=== PATIENT | female | born 1990 | race Caucasian/White ===

== ENCOUNTER 2019-09-01 09:14 | Inpatient (IN) | payer MEDICAID ==
[~2019-09-01 09:14] MED LIST: Bupivacaine 0.25% 10 ML SDV ONE
[2019-09-01] MEDS ORDERED: Ondansetron 4 MG/2 ML SDV IVPUSH PRN (10:43)
[2019-09-01] MEDS ORDERED: Sodium Chloride 0.9% 10 ML Syringe FLUSH PRN (10:43)
[2019-09-01] MEDS ORDERED: Lidocaine 1% 50 ML MDV INJECT ONE (10:43)
[2019-09-01] MEDS ORDERED: Lactated Ringers 1,000 ML IV SCH (10:45)
[2019-09-01] MEDS ORDERED: Oxytocin/Lactated Ringers 10 UNIT/1,000 ML BAG IV SCH ×2 (10:45→11:00)
[2019-09-01] MEDS ORDERED: ceFAZolin 2 GM in Premix Bag 1 BAG IV ONE (11:00)
[2019-09-01] MEDS ORDERED: ePHEDrine 50 MG/ML SDV IVPUSH PRN (12:40)
[2019-09-01] MEDS ORDERED: diphenhydrAMINE 50 MG/ML SDV IVPUSH PRN (12:40)
[2019-09-01] MEDS ORDERED: fentaNYL 100 MCG/2 ML SDV EPIDUR PRN (12:40)
[2019-09-01] MEDS ORDERED: Bupivacaine/fentaNYL/NS 100 ML Bag EPIDUR PRN (12:40)
--- NOTE | 2019-09-01 13:02 | PCM.PREANE ---
Preanesthetic Assessment - Procedure Proposed Procedure: natacha - Anesthesia/Transfusion/Family Hx Anesthesia History: Prior Anesthesia Reaction Type of Anesthesia Reaction: Other (see below) (vilent behavior with wake up) Family History of Anesthesia Reaction: No Transfusion History: No Prior Transfusion(s) - Review of Systems General: No Symptoms Pulmonary: No Symptoms Cardiovascular: No Symptoms Gastrointestinal: No Symptoms Neurological: No Symptoms Other: Reports: None - Physical Assessment Height: 5 ft 6 in Weight: 94.256 kg ASA Class: 2 Mental Status: Alert & Oriented x3 Airway Class: Mallampati = 1 Dentition: Reports: Normal Dentition Thyro-Mental Finger Breadths: 3 Mouth Opening Finger Breadths: 3 ROM/Head Extension: Full Lungs: Clear to Auscultation, Normal Respiratory Effort Cardiovascular: Regular Rate, Regular Rhythm - Lab Values: Laboratory Last Values WBC 13.70 K/mm3 (3.98-10.04) H 09/01/19 11:10 RBC 3.80 M/mm3 (3.98-5.22) L 09/01/19 11:10 Hgb 11.0 gm/dl (11.2-15.7) L 09/01/19 11:10 Hct 34.2 % (34.1-44.9) 09/01/19 11:10 MCV 90.0 fl (79.4-94.8) 09/01/19 11:10 MCH 28.9 pg (25.6-32.2) 09/01/19 11:10 MCHC 32.2 g/dl (32.2-35.5) 09/01/19 11:10 RDW Std Deviation 47.1 fL (36.4-46.3) H 09/01/19 11:10 Plt Count 253 K/mm3 (182-369) 09/01/19 11:10 MPV 7.2 fl (9.4-12.3) L 09/01/19 11:10 Neut % (Auto) 79.1 % (34.0-71.1) H 09/01/19 11:10 Lymph % (Auto) 13.8 % (19.3-51.7) L 09/01/19 11:10 [place] % (Auto) 4.5 % (4.7-12.5) L 09/01/19 11:10 Eos % (Auto) 1.6 (0.7-5.8) 09/01/19 11:10 Baso % (Auto) 0.1 % (0.1-1.2) 09/01/19 11:10 Neut # (Auto) 10.83 K/mm3 (1.56-6.13) H 09/01/19 11:10 Lymph # (Auto) 1.89 K/mm3 (1.18-3.74) 09/01/19 11:10 [place] # (Auto) 0.61 K/mm3 (0.24-0.36) H 09/01/19 11:10 Eos # (Auto) 0.22 K/mm3 (0.04-0.36) 09/01/19 11:10 Baso # (Auto) 0.02 K/mm3 (0.01-0.08) 09/01/19 11:10 Manual Slide Review Normal smear 09/01/19 11:10 - Allergies Allergies/Adverse Reactions: Allergies Allergy/AdvReac Type Severity Reaction Status Date / Time amoxicillin Allergy Difficulty Verified 09/01/19 09:33 Breathing Penicillins Allergy Difficulty Verified 09/01/19 09:33 Breathing sulfamethoxazole Allergy Hives Verified 09/01/19 09:33 [From Bactrim] trimethoprim [From Bactrim] Allergy Hives Verified 09/01/19 09:33 - Blood Blood Available: No - Acknowledgements Anesthesia Type Planned: Epidural Pt an Appropriate Candidate for the Planned Anesthesia: Yes Alternatives and Risks of Anesthesia Discussed w Pt/Guardian: Yes Pt/Guardian Understands and Agrees with Anesthesia Plan: Yes PreAnesthesia Questionnaire Cardiovascular History: Reports: None Respiratory History: Reports: Asthma, Other (See Below) (sarcoidosis- lungs mostly- nodules in each lung) Gastrointestinal History: Reports: GERD : 3 Para: 2 Musculoskeletal History: Reports: RA Immunologic History: Reports: Other (See Below) (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-nerve pain muscle pain inflammation) Oncologic (Cancer) History: Reports: None - History Comment History Comment: albuteral and a yellow inhaler - SUBSTANCE USE Smoking Status *Q: Former Smoker (quit 2 years ago) Tobacco Use Within Last Twelve Months: No Second Hand Smoke Exposure: No Days Per Week of Alcohol Use: 0 Recreational Drug Use History: No - HOME MEDS Home Medications: Home Meds Albuterol Sulfate [Albuterol Sulfate Hfa] 8.5 gm IH Q4HR PRN 08/24/19 [History] - CURRENT (IN HOUSE) MEDS Current Meds: Current Medications Diphenhydramine HCl (Benadryl) 25 mg IVPUSH Q6H PRN PRN Reason: pruritis Ephedrine Sulfate (Ephedrine Sulfate) 5 mg IVPUSH ASDIRECTED PRN PRN Reason: Hypotension Fentanyl (Sublimaze) 100 mcg EPIDUR Q3H PRN PRN Reason: Pain Last Admin: 09/01/19 12:47 Dose: 100 mcg Fentanyl/Bupivacaine HCl (Fentanyl/Bupivacaine/Ns 2 Mcg-0.125% 100 Ml) 100 ml EPIDUR ASDIRECTED PRN PRN Reason: Pain Last Admin: 09/01/19 12:48 Dose: 100 ml Lactated Ringer's (Ringers, Lactated) 1,000 mls @ 100 mls/hr IV ASDIRECTED FIOR Last Admin: 09/01/19 11:37 Dose: 100 mls/hr Oxytocin/Lactated Ringer's (Pitocin In Lr 10 Units/1,000 Ml) 10 unit in 1,000 mls @ 500 mls/hr IV .CONTINUOUS FIOR Oxytocin/Lactated Ringer's (Pitocin In Lr 10 Units/1,000 Ml) 10 unit in 1,000 mls @ 12 mls/hr IV TITRATE FIOR; Protocol Last Admin: 09/01/19 11:37 Dose: 2 munits/min, 12 mls/hr Cefazolin Sodium/Dextrose 1 gm (/ Premix) 50 mls @ 100 mls/hr IV Q8H FIOR Ondansetron HCl (Zofran) 4 mg IVPUSH Q4H PRN PRN Reason: Nausea/Vomiting Last Admin: 09/01/19 12:19 Dose: 4 mg Sodium Chloride (Saline Flush) 10 ml FLUSH ASDIRECTED PRN PRN Reason: Keep Vein Open Discontinued Medications Cefazolin Sodium/Dextrose 2 gm (/ Premix) 50 mls @ 100 mls/hr IV ONETIME ONE Stop: 09/01/19 11:29 Last Admin: 09/01/19 11:37 Dose: 100 mls/hr Lidocaine HCl (Xylocaine 1%) 50 ml INJECT ONETIME ONE Stop: 09/01/19 10:44
--- NOTE | 2019-09-01 16:29 | PCM.LDHP ---
L&D History of Present Illness - General Date of Service: 09/01/19 Admit Problem/Dx: Patient Status Order with Admit Dx/Problem 09/01/19 09:34 Patient Status [ADT] Routine 09/01/19 10:44 Patient Status [ADT] Routine Admission Diagnosis/Problem Admission Diagnosis/Problem Source of Information: Patient History Limitations: Reports: No Limitations - History of Present Illness Introduction:: Patient with decreased movement x 2 days at 39w3d. Admitted for induction of labor. Pain Score: 0 - Related Data Allergies/Adverse Reactions: Allergies Allergy/AdvReac Type Severity Reaction Status Date / Time amoxicillin Allergy Difficulty Verified 09/01/19 09:33 Breathing Penicillins Allergy Difficulty Verified 09/01/19 09:33 Breathing sulfamethoxazole Allergy Hives Verified 09/01/19 09:33 [From Bactrim] trimethoprim [From Bactrim] Allergy Hives Verified 09/01/19 09:33 Home Medications: Home Meds Albuterol Sulfate [Albuterol Sulfate Hfa] 8.5 gm IH Q4HR PRN 08/24/19 [History] Past Medical History Cardiovascular History: Reports: None Respiratory History: Reports: Asthma, Other (See Below) (sarcoidosis- lungs mostly- nodules in each lung) Other Respiratory History: sarcoidosis Gastrointestinal History: Reports: GERD [place]ANDLE [place]ICKER History: Reports: , Spontaneous Musculoskeletal History: Reports: RA Other Musculoskeletal History: Left knee surgery Immunologic History: Reports: Other (See Below) (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-nerve pain muscle pain inflammation) Oncologic (Cancer) History: Reports: None - Past Surgical History HEENT Surgical History: Reports: Adenoidectomy, Tonsillectomy, Other (See Below) Other HEENT Surgeries/Procedures: wisdom teeth removal GI Surgical History: Reports: Hernia, Abdominal - History Comment History Comment: albuteral and a yellow inhaler Social & Family History - Family History Family Medical History: Noncontributory - Tobacco Use Smoking Status *Q: Former Smoker (quit 2 years ago) Used Tobacco, but Quit: Yes Month/Year Tobacco Last Used: 07/2017 Second Hand Smoke Exposure: No - Alcohol Use Days Per Week of Alcohol Use: 0 - Recreational Drug Use Recreational Drug Use: No Drug Use in Last 12 Months: No H&P Review of Systems - Review of Systems: Review Of Systems: See Below General: Reports: No Symptoms HEENT: Reports: No Symptoms Pulmonary: Reports: No Symptoms Cardiovascular: Reports: No Symptoms Gastrointestinal: Reports: No Symptoms Genitourinary: Reports: No Symptoms Musculoskeletal: Reports: No Symptoms Skin: Reports: No Symptoms Psychiatric: Reports: No Symptoms Neurological: Reports: No Symptoms Hematologic/Lymphatic: Reports: No Symptoms Immunologic: Reports: No Symptoms L&D Exam - Exam Exam: See Below - Vital Signs Vital Signs: Last Vital Signs Temp 36.7 C 09/01/19 09:34 Pulse 78 09/01/19 09:34 Resp 14 09/01/19 09:34 BP 138/73 09/01/19 09:34 Pulse Ox 98 09/01/19 09:34 Weight: 94.256 kg - OB Specific Movement: Active Heart Tones: Present Heart Rate (FHR) Variability: Moderate (6-25 bmp) Presentation: Vertex - Paiz Score Paiz Score Cervix Position: Anterior Paiz Score Consistency: Soft Paiz Score Effacement: >80% Paiz Score Dilation: 3-4 cm Paiz Score 's Station: -2 Paiz Score Total: 10 - Exam General: Alert, Oriented HEENT: PERRLA, Conjunctiva Clear, EACs Clear, EOMI, Hearing Intact, Mucosa Moist & [place], Nares Patent, Normal Nasal Septum, Posterior Pharynx Clear, TMs Clear Neck: Supple, Trachea Midline Lungs: Clear to Auscultation, Normal Respiratory Effort Cardiovascular: Regular Rate, Regular Rhythm GI/Abdominal Exam: Normal Bowel Sounds, Soft, Non-Tender, No Organomegaly Back Exam: Normal Inspection, Full Range of Motion Extremities: Normal Inspection, Normal Range of Motion, Non-Tender, No Pedal Edema, Normal Capillary Refill Skin: Warm, Dry, Intact Neurological: Cranial Nerves Intact, Reflexes Equal Bilateral Psychiatric: Alert, Normal Affect, Normal Mood - Patient Data Lab Results Last 24 hrs: Laboratory Results - last 24 hr 09/01/19 Range/Units 11:10 WBC 13.70 H (3.98-10.04) K/mm3 RBC 3.80 L (3.98-5.22) M/mm3 Hgb 11.0 L (11.2-15.7) gm/dl Hct 34.2 (34.1-44.9) % MCV 90.0 (79.4-94.8) fl MCH 28.9 (25.6-32.2) pg MCHC 32.2 (32.2-35.5) g/dl RDW Std Deviation 47.1 H (36.4-46.3) fL Plt Count 253 (182-369) K/mm3 MPV 7.2 L (9.4-12.3) fl Neut % (Auto) 79.1 H (34.0-71.1) % Lymph % (Auto) 13.8 L (19.3-51.7) % [place] % (Auto) 4.5 L (4.7-12.5) % Eos % (Auto) 1.6 (0.7-5.8) Baso % (Auto) 0.1 (0.1-1.2) % Neut # (Auto) 10.83 H (1.56-6.13) K/mm3 Lymph # (Auto) 1.89 (1.18-3.74) K/mm3 [place] # (Auto) 0.61 H (0.24-0.36) K/mm3 Eos # (Auto) 0.22 (0.04-0.36) K/mm3 Baso # (Auto) 0.02 (0.01-0.08) K/mm3 Manual Slide Review Normal smear Result Diagrams: 09/01/19 11:10 Problem List Initiated/Reviewed/Updated: Yes Orders Last 24hrs: Active Orders 24 hr Category Date Time Status Patient Status [ADT] Routine ADT 09/01/19 10:44 Active Activity as Tolerated [RC] PFP Care 09/01/19 10:43 Active Communication Order [RC] ASDIRECTED Care 09/01/19 10:43 Active Heart Tones [RC] ASDIRECTED Care 09/01/19 10:44 Active Non Stress Test [RC] PER UNIT ROUTINE Care 09/01/19 09:34 Active Notify Provider [RC] ASDIRECTED Care 09/01/19 12:40 Active Notify Provider [RC] PFP Care 09/01/19 10:43 Active Notify Provider [RC] PRN Care 09/01/19 10:43 Active Peripheral IV Care [RC] . DIRECTED Care 09/01/19 10:44 Active Vital Signs [RC] PER UNIT ROUTINE Care 09/01/19 09:34 Active Vital Signs [RC] PER UNIT ROUTINE Care 09/01/19 10:43 Active Regular Diet [DIET] Diet 09/01/19 Breakfast Active RAPID PLASMA REAGIN,RPR [CHEM] Routine Lab 09/01/19 11:10 Received Bupivacaine/fentaNYL/NS [fentaNYL/Bupivacaine/NS 2 MCG- Med 09/01/19 12:40 Active 0.125% 100 ML] 100 ml EPIDUR ASDIRECTED PRN Lactated Ringers [Ringers, Lactated] 1,000 ml Med 09/01/19 10:45 Active IV ASDIRECTED Ondansetron [Zofran] Med 09/01/19 10:43 Active 4 mg IVPUSH Q4H PRN Oxytocin/Lactated Ringers [Pitocin in LR 10 Units/1,000 Med 09/01/19 10:45 Active ML] 10 unit in 1,000 ml IV .CONTINUOUS Oxytocin/Lactated Ringers [Pitocin in LR 10 Units/1,000 Med 09/01/19 11:00 Active ML] 10 unit in 1,000 ml IV TITRATE Sodium Chloride 0.9% [Saline Flush] Med 09/01/19 10:43 Active 10 ml FLUSH ASDIRECTED PRN ceFAZolin [Ancef] 1 gm Med 09/01/19 19:00 Active Premix Bag 1 bag IV Q8H diphenhydrAMINE [Benadryl] Med 09/01/19 12:40 Active 25 mg IVPUSH Q6H PRN ePHEDrine [ePHEDrine sulfate] Med 09/01/19 12:40 Active 5 mg IVPUSH ASDIRECTED PRN fentaNYL [Sublimaze] Med 09/01/19 12:40 Active 100 mcg EPIDUR Q3H PRN Electronic Heart Tones Ext w TOCO [WOMSER] Oth 09/01/19 10:43 Ordered Routine Electronic Heart Tones Internal [WOMSER] Per Unit Oth 09/01/19 10:43 Ordered Routine Peripheral IV Insertion Adult [OM.PC] Routine Oth 09/01/19 10:43 Ordered Resuscitation Status Routine Resus Stat 09/01/19 09:33 Ordered Medication Orders Diphenhydramine HCl (Benadryl) 25 mg IVPUSH Q6H PRN PRN Reason: pruritis Ephedrine Sulfate (Ephedrine Sulfate) 5 mg IVPUSH ASDIRECTED PRN PRN Reason: Hypotension Fentanyl (Sublimaze) 100 mcg EPIDUR Q3H PRN PRN Reason: Pain Last Admin: 09/01/19 12:47 Dose: 100 mcg Fentanyl/Bupivacaine HCl (Fentanyl/Bupivacaine/Ns 2 Mcg-0.125% 100 Ml) 100 ml EPIDUR ASDIRECTED PRN PRN Reason: Pain Last Admin: 09/01/19 12:48 Dose: 100 ml Lactated Ringer's (Ringers, Lactated) 1,000 mls @ 100 mls/hr IV ASDIRECTED FIOR Last Admin: 09/01/19 11:37 Dose: 100 mls/hr Oxytocin/Lactated Ringer's (Pitocin In Lr 10 Units/1,000 Ml) 10 unit in 1,000 mls @ 500 mls/hr IV .CONTINUOUS FIOR Oxytocin/Lactated Ringer's (Pitocin In Lr 10 Units/1,000 Ml) 10 unit in 1,000 mls @ 12 mls/hr IV TITRATE FIOR; Protocol Last Titration: 09/01/19 13:50 Dose: 6 munits/min, 36 mls/hr Titration: 09/01/19 13:15 Dose: 4 munits/min, 24 mls/hr Admin: 09/01/19 11:37 Dose: 2 munits/min, 12 mls/hr Cefazolin Sodium/Dextrose 1 gm (/ Premix) 50 mls @ 100 mls/hr IV Q8H FIOR Ondansetron HCl (Zofran) 4 mg IVPUSH Q4H PRN PRN Reason: Nausea/Vomiting Last Admin: 09/01/19 12:19 Dose: 4 mg Sodium Chloride (Saline Flush) 10 ml FLUSH ASDIRECTED PRN PRN Reason: Keep Vein Open Assessment/Plan Comment:: Term induction. AROM meconium. Anticipate
--- NOTE | 2019-09-01 16:32 | PCM.SN ---
- Free Text/Narrative Note: Stage I - patient presented with decreased movement. Induction of labor. AROM meconium. Pitocin augmentation. Epidural anesthesia. Progressed rapidly to complete. Stage II - of viable male, weight 3457, APGARS 8/9, at 1621. Head delivered over intact perineum. Positive cry. Body and shoulders atraumatically. Stage III - of intact placenta. No laceration. EBL 200.
[2019-09-01] MEDS ORDERED: Benzocaine/Menthol 20%-0.5% Spray 56 GM Canister TOP PRN (17:04)
[2019-09-01] MEDS ORDERED: Witch Hazel Medicated Pads 40/Jar TOP PRN (17:04)
[2019-09-01] MEDS ORDERED: Docusate Sodium 100 MG Cap PO PRN (17:04)
[2019-09-01] MEDS ORDERED: ceFAZolin 1 GM in Premix Bag 1 BAG IV SCH (19:00)
[2019-09-01] MEDS: Ibuprofen 600 MG Tab PO PRN (20:32)
[2019-09-02] MEDS: Acetaminophen 325 MG Tab PO PRN ×3 (00:35→13:10)
[2019-09-02] MEDS: Ibuprofen 600 MG Tab PO PRN ×2 (02:23→09:07)
--- NOTE | 2019-09-02 11:56 | PCM48HPAN ---
Post Anesthesia Note - EVALUATION WITHIN 48HRS OF ANESTHETIC Vital Signs in Normal Range: Yes Patient Participated in Evaluation: Yes Respiratory Function Stable: Yes Airway Patent: Yes Cardiovascular Function Stable: Yes Hydration Status Stable: Yes Pain Control Satisfactory: Yes Nausea and Vomiting Control Satisfactory: Yes Mental Status Recovered: Yes Vital Signs: Last Vital Signs Temp 36.4 C 09/02/19 05:09 Pulse 79 09/02/19 09:09 Resp 15 09/02/19 09:09 BP 131/62 09/02/19 09:09 Pulse Ox 95 09/02/19 09:09
--- NOTE | 2019-09-10 10:19 | PCM.DCSUM1 ---
Discharge Summary - Hospital Course Free Text/Narrative:: Decreased movement beyond 40 weeks. Admitted for IOL. Rapid labor and uncomplicated Diagnosis: Stroke: No - Discharge Data Discharge Date: 09/02/19 Discharge Disposition: Home, Self-Care 01 Condition: Good - Referral to Home Health Primary Care Physician: Shamika Emery MD - Patient Summary/Data Hospital Course: Uncomplicated course - Patient Instructions Diet: Regular Diet as Tolerated Activity: As Tolerated Driving: May Drive Today Showering/Bathing: May Shower Notify Provider of: Fever, Increased Pain, Swelling and Redness, Drainage, Nausea and/or Vomiting - Discharge Plan Home Medications: Home Meds Albuterol Sulfate [Albuterol Sulfate Hfa] 8.5 gm IH Q4HR PRN 08/24/19 [History] Patient Handouts: Care After Vaginal Delivery Referrals: Shamika Emery MD [Primary Care Provider] - - Discharge Summary/Plan Comment DC Time >30 min.: No - General Info Date of Service: 09/02/19 Functional Status: Reports: Pain Controlled - Review of Systems General: Reports: No Symptoms HEENT: Reports: No Symptoms Pulmonary: Reports: No Symptoms Cardiovascular: Reports: No Symptoms Gastrointestinal: Reports: No Symptoms Genitourinary: Reports: No Symptoms Musculoskeletal: Reports: No Symptoms Skin: Reports: No Symptoms Neurological: Reports: No Symptoms Psychiatric: Reports: No Symptoms - Patient Data Vitals - Most Recent: Last Vital Signs Temp 36.4 C 09/02/19 05:09 Pulse 81 09/02/19 14:55 Resp 15 09/02/19 14:55 BP 117/69 09/02/19 14:55 Pulse Ox 97 09/02/19 14:55 Weight - Most Recent: 94.256 kg Med Orders - Current: Current Medications Discontinued Medications Acetaminophen (Tylenol) 650 mg PO Q4H PRN PRN Reason: Pain Last Admin: 09/02/19 13:10 Dose: 650 mg Benzocaine/Menthol (Dermoplast Pain Relief [place]) 0 gm TOP ASDIRECTED PRN PRN Reason: Perineal Comfort Measure Last Admin: 09/01/19 18:22 Dose: 1 can Bupivacaine HCl (Sensorcaine-Mpf 0.25%) 10 ml .ROUTE .STK-MED ONE Stop: 09/01/19 00:01 Diphenhydramine HCl (Benadryl) 25 mg IVPUSH Q6H PRN PRN Reason: pruritis Docusate Sodium (Colace) 100 mg PO BID PRN PRN Reason: Constipation Ephedrine Sulfate (Ephedrine Sulfate) 5 mg IVPUSH ASDIRECTED PRN PRN Reason: Hypotension Fentanyl (Sublimaze) 100 mcg EPIDUR Q3H PRN PRN Reason: Pain Last Admin: 09/01/19 12:47 Dose: 100 mcg Fentanyl/Bupivacaine HCl (Fentanyl/Bupivacaine/Ns 2 Mcg-0.125% 100 Ml) 100 ml EPIDUR ASDIRECTED PRN PRN Reason: Pain Last Admin: 09/01/19 12:48 Dose: 100 ml Lactated Ringer's (Ringers, Lactated) 1,000 mls @ 100 mls/hr IV ASDIRECTED FIOR Last Admin: 09/01/19 11:37 Dose: 100 mls/hr Oxytocin/Lactated Ringer's (Pitocin In Lr 10 Units/1,000 Ml) 10 unit in 1,000 mls @ 500 mls/hr IV .CONTINUOUS FIOR Oxytocin/Lactated Ringer's (Pitocin In Lr 10 Units/1,000 Ml) 10 unit in 1,000 mls @ 12 mls/hr IV TITRATE FIOR; Protocol Last Titration: 09/01/19 16:25 Dose: 999 mls/hr Cefazolin Sodium/Dextrose 2 gm (/ Premix) 50 mls @ 100 mls/hr IV ONETIME ONE Stop: 09/01/19 11:29 Last Admin: 09/01/19 11:37 Dose: 100 mls/hr Cefazolin Sodium/Dextrose 1 gm (/ Premix) 50 mls @ 100 mls/hr IV Q8H IFOR Ibuprofen (Motrin) 600 mg PO Q6H PRN PRN Reason: Mild pain or fever Last Admin: 09/02/19 09:07 Dose: 600 mg Lidocaine HCl (Xylocaine 1%) 50 ml INJECT ONETIME ONE Stop: 09/01/19 10:44 Last Admin: 09/01/19 23:24 Dose: Not Given Ondansetron HCl (Zofran) 4 mg IVPUSH Q4H PRN PRN Reason: Nausea/Vomiting Last Admin: 09/01/19 12:19 Dose: 4 mg Sodium Chloride (Saline Flush) 10 ml FLUSH ASDIRECTED PRN PRN Reason: Keep Vein Open [place] (Tucks) 1 pad TOP ASDIRECTED PRN PRN Reason: Pain Last Admin: 09/01/19 18:22 Dose: 1 tub - Exam General: Reports: Alert, Oriented HEENT: Reports: Pupils Equal, Pupils Reactive, EOMI, Mucous Membr. Moist/[place] Neck: Reports: Supple Lungs: Reports: Clear to Auscultation, Normal Respiratory Effort Cardiovascular: Reports: Regular Rate, Regular Rhythm GI/Abdominal Exam: Normal Bowel Sounds, Soft, Non-Tender, No Organomegaly, No Distention, No Abnormal Bruit, No Mass, Pelvis Stable Rectal (Female) Exam: Normal Exam, Normal Rectal Tone Back Exam: Reports: Normal Inspection, Full Range of Motion Extremities: Normal Inspection, Normal Range of Motion, Non-Tender, No Pedal Edema, Normal Capillary Refill Skin: Reports: Warm, Dry, Intact Wound/Incisions: Reports: Healing Well Neurological: Reports: No New Focal Deficit Psy/Mental Status: Reports: Alert, Normal Affect, Normal Mood
== END 2019-09-02 17:15 | disposition home or self-care (01) | DRG 807 ==
LOC: JD.OB 09:14 → UNDOADMOB 09:14 → JD.OB 10:44 → OBSVTOIN 16:20 → JD.OB 16:21
PROVIDERS: ADMIT Obstetrics & Gynecology; ATTEND Obstetrics & Gynecology
PROC: 10E0XZZ Delivery of Products of Conception, External Approach (ICD-10-PCS; principal; 2019-09-01)
PROC: 10907ZC Drainage of Amniotic Fluid, Therapeutic from Products of Conception, Via Natural or Artificial Opening (ICD-10-PCS; 2019-09-01)
PROC: 3E0R3BZ Introduction of Anesthetic Agent into Spinal Canal, Percutaneous Approach (ICD-10-PCS; 2019-09-01)
DX: O36.8130 Decreased fetal movements, third trimester, not applicable or unspecified (principal); J45.909 Unspecified asthma, uncomplicated; O77.0 Labor and delivery complicated by meconium in amniotic fluid; O99.52 Diseases of the respiratory system complicating childbirth; Z90.89 Acquired absence of other organs; Z87.891 Personal history of nicotine dependence; Z37.0 Single live birth; Z3A.39 39 weeks gestation of pregnancy; Z88.0 Allergy status to penicillin; Z88.8 Allergy status to other drugs, medicaments and biological substances; Z79.51 Long term (current) use of inhaled steroids
CPT/HCPCS: 01967; 36415; 51702; 59025; 59409; 85025; 86592; A9270-GY; J0690; J2405; J2590; J3010; J3490; J7120

== ENCOUNTER 2021-06-16 19:46 | Emergency (ER) | payer MEDICAID ==
[2021-06-16] MEDS ORDERED: Orphenadrine 100 MG Tab.ER PO STA (20:50)
[2021-06-16] MEDS ORDERED: Ketorolac 60 MG/2 ML SDV IM ONE (20:50)
--- NOTE | 2021-06-16 21:41 | EDM.PDOC ---
ED HPI GENERAL MEDICAL PROBLEM - General Chief Complaint: Upper Extremity Injury/Pain Stated Complaint: R SIDE SHOULDER AND NECK PAIN Time Seen by Provider: 06/16/21 20:46 Source of Information: Reports: Patient History Limitations: Reports: No Limitations - History of Present Illness INITIAL COMMENTS - FREE TEXT/NARRATIVE: 30-year-old female presents the emergency department today with complaints of pain to the right side of her neck radiating into her right shoulder as well as her right chest. Patient states she woke this morning and must have slept wrong because she was unable to turn her head from side to side due to muscle tension noted in the right side of her neck. Patient denies any previous injury to her neck. States she has tried to take Tylenol and use ice as well as heat and it has not seemed to help. States she was going to try and get into a chiropractor today however she could not find one that was open. Right Shoulder Pain Score (Numeric/FACES): 8 Neck Pain Score (Numeric/FACES): 8 - Related Data Allergies Allergy/AdvReac Type Severity Reaction Status Date / Time amoxicillin Allergy Difficulty Verified 09/01/19 09:33 Breathing Penicillins Allergy Difficulty Verified 09/01/19 09:33 Breathing sulfamethoxazole Allergy Hives Verified 09/01/19 09:33 [From Bactrim] trimethoprim [From Bactrim] Allergy Hives Verified 09/01/19 09:33 Home Meds: Home Meds Albuterol Sulfate [Albuterol Sulfate Hfa] 8.5 gm IH Q4HR PRN 08/24/19 [History] Cyclobenzaprine [Flexeril] 10 mg PO ASDIRECTED 06/16/21 [History] DULoxetine [Cymbalta] 60 mg PO DAILY 06/16/21 [History] Gabapentin [Gralise] 300 mg PO TID 06/16/21 [History] Hydroxychloroquine [Plaquenil] 1 tab PO BID 06/16/21 [History] Omeprazole 40 mg PO DAILY 06/16/21 [History] Past Medical History Cardiovascular History: Reports: None Respiratory History: Reports: Asthma, Other (See Below) Other Respiratory History: sarcoidosis Gastrointestinal History: Reports: GERD MANAGER PRIMARY CARE History: Reports: , Spontaneous Musculoskeletal History: Reports: RA Other Musculoskeletal History: Left knee surgery Immunologic History: Reports: Other (See Below) Oncologic (Cancer) History: Reports: None - Past Surgical History HEENT Surgical History: Reports: Adenoidectomy, Tonsillectomy, Other (See Below) Other HEENT Surgeries/Procedures: wisdom teeth removal GI Surgical History: Reports: Hernia, Abdominal - History Comment History Comment: albuteral and a yellow inhaler Social & Family History - Family History Family Medical History: No Pertinent Family History - Tobacco Use Tobacco Use Status *Q: Never Tobacco User - Caffeine Use Caffeine Use: Reports: Coffee, Energy Drinks, Soda - Recreational Drug Use Recreational Drug Use: No Review of Systems - Review of Systems Review Of Systems: Comprehensive ROS is negative, except as noted in HPI. ED EXAM, GENERAL - Physical Exam Exam: See Below Exam Limited By: No Limitations General Appearance: Alert, WD/WN, Mild Distress Ears: Normal External Exam, Hearing Grossly Normal Nose: Normal Inspection Throat/Mouth: Normal Inspection, Normal Lips, Normal Voice, No Airway Compromise Head: Atraumatic, Normocephalic Neck: Normal Inspection, Supple, Tender Lateral (Tenderness noted to trapezius and sternocleidomastoid on the right side. Patient is unable to turn her head fully from side to side due to muscle tension and tenderness.). No: Tender Midline Respiratory/Chest: No Respiratory Distress, Lungs Clear, Normal Breath Sounds, No Accessory Muscle Use, Chest Non-Tender Cardiovascular: Normal Peripheral Pulses, Regular Rate, Rhythm, No Edema, No Murmur GI/Abdominal: No Distention (Female) Exam: Deferred Rectal (Female) Exam: Deferred Back Exam: Normal Inspection Extremities: Normal Inspection Neurological: Alert, Oriented, Normal Cognition Psychiatric: Normal Affect, Normal Mood Skin Exam: Warm, Dry, Intact, Normal Color, No Rash Lymphatic: No Adenopathy Course - Vital Signs Text/Narrative:: Stated above patient presents with pain to the right side of her neck. Upon palpation trapezius muscle is tender to very minimal palpation. She also has pain noted into the sternocleidomastoid area. Again patient states she woke this morning with the pain and tenderness and suspect she slept wrong last night. She is unable to turn her head from side to side due to the pain and tension noted in her muscles. Patient will be medicated with Norflex one-time as well as Toradol 60 mg IM. Last Recorded V/S: Last Vital Signs Temp 97.8 F 06/16/21 20:06 Pulse 74 06/16/21 20:06 Resp 20 06/16/21 20:06 BP 119/66 06/16/21 20:06 Pulse Ox 98 06/16/21 20:06 - Orders/Labs/Meds Meds: Medications Discontinued Medications Generic Name Dose Route Start Last Admin Trade Name Boni PRN Reason Stop Dose Admin Ketorolac Tromethamine 60 mg 06/16/21 20:50 06/16/21 20:57 Ketorolac 60 Mg/2 Ml Sdv IM 06/16/21 20:51 60 mg ONETIME ONE Administration Orphenadrine Citrate 100 mg 06/16/21 20:50 06/16/21 20:58 Orphenadrine 100 Mg Tab.Er PO 06/16/21 20:51 100 mg NOW STA Administration - Re-Assessments/Exams Free Text/Narrative Re-Assessment/Exam: 06/16/21 21:44 Nursing staff notifies me that the patient is feeling much better and is requesting to go home. She will be discharged home. Departure - Departure Time of Disposition: 21:39 Disposition: Home, Self-Care 01 Condition: Good Clinical Impression: Torticollis, acute - Discharge Information Instructions: Acute Torticollis, Adult Referrals: Analy Mckinley ANCIENT ART CURATOR [Primary Care Provider] - Forms: ED Department Discharge Additional Instructions: You were seen in the emergency department this evening with muscle tension noted on the right side of your neck radiating into your chest and right shoulder. You were given a muscle relaxer as well as a strong anti-inflammatory medication and this did seem to help. Recommend go home and get some rest. Drink plenty of fluids. May alternate taking Tylenol 650 mg with ibuprofen 600 mg every 4 hours for the next 48 hours. Recommend using ice 30 minutes at a time every 3 hours while awake. Would avoid using heat for the next 48 hours. Should your condition worsen or change, do not hesitate returning to the emergency department. Sepsis Event Note (ED) - Focused Exam Vital Signs: Vital Signs Temp Pulse Resp BP Pulse Ox 06/16/21 20:06 97.8 F 74 20 119/66 98
== END 2021-06-16 21:48 | disposition home or self-care (01) ==
LOC: JD.ED 19:46
DX: M43.6 Torticollis (principal); K21.9 Gastro-esophageal reflux disease without esophagitis; Z79.899 Other long term (current) drug therapy; Z88.0 Allergy status to penicillin; Z88.1 Allergy status to other antibiotic agents
CPT/HCPCS: 96372; 99283; A9270; J1885

== ENCOUNTER 2024-02-29 15:15 | Emergency (ER) | payer OTHER ==
[2024-02-29] MEDS ORDERED: Sodium Chloride 0.9% 10 ML Syringe FLUSH PRN (15:52)
[2024-02-29 16:37] LABS: BASOPHILS ABSOLUTE AUTO 0.1 K/mm3 (0.0-0.2); BASOPHILS PERCENT AUTO 0.5 % (0.0-1.0); EOSINOPHILS ABSOLUTE AUTO 0.5 K/mm3 (0.0-0.4); EOSINOPHILS PERCENT AUTO 4.9 % (0.0-6.0); HEMATOCRIT 36.4 % (37.0-47.0); HEMOGLOBIN 12.1 gm/dl (12.0-16.0); IMMATURE GRAN ABSOLUTE AUTO 0.03 K/mm3 (0.00-0.05); IMMATURE GRAN PERCENT AUTO 0.3 % (0.0-0.4); LYMPHOCYTES ABSOLUTE AUTO 2.4 K/mm3 (1.0-4.8); LYMPHOCYTES PERCENT AUTO 24.1 % (24.0-44.0); MEAN CORPUSCULAR HEMOGLOBIN 30.9 pg (28.0-32.0); MEAN CORPUSCULAR HGB CONC 33.2 g/dl (32.0-36.0); MEAN CORPUSCULAR VOLUME 93.1 fl (83.0-99.0); MEAN PLATELET VOLUME 8.3 fl (9.4-12.3); MONOCYTES ABSOLUTE AUTO 0.7 K/mm3 (0.0-0.8); MONOCYTES PERCENT AUTO 6.9 % (0.0-8.0); NEUTROPHILS ABSOLUTE AUTO 6.4 K/mm3 (1.8-7.7); NEUTROPHILS PERCENT AUTO 63.3 % (41.0-71.0); PLATELET COUNT,PLT 240 K/mm3 (150-400); RED BLOOD CELL COUNT 3.91 M/mm3 (4.10-5.30); WHITE BLOOD CELL COUNT,WBC 10.12 K/mm3 (3.9-11.3)
[2024-02-29 16:57] LABS: INR 1.07; PROTHROMBIN TIME 11.3 SECONDS (9.7-12.0)
[2024-02-29 17:00] LABS: A/G RATIO 1.3 (1-2); ALBUMIN 4.2 g/dl (3.4-5.0); ANION GAP 15.3 (5-15); BILIRUBIN TOTAL 0.4 mg/dL (0.2-1.0); BUN/CREATININE RATIO 12.9 (14-18); C-REACTIVE PROTEIN 0.29 mg/dL (<0.30); CALCIUM 9.2 mg/dL (8.5-10.1); CREATININE 0.7 mg/dL (0.55-1.02); EST CRCL DRUG DOSING (CG) 105.01 mL/min; POTASSIUM,K 3.3 mEq/L (3.5-5.1); PROTEIN TOTAL,TP 7.4 g/dl (6.4-8.2)
== END 2024-02-29 17:54 | disposition home or self-care (01) ==
LOC: JD.ED 15:15
DX: S80.12XA Contusion of left lower leg, initial encounter (principal); D89.89 Other specified disorders involving the immune mechanism, not elsewhere classified; J45.909 Unspecified asthma, uncomplicated; Z88.0 Allergy status to penicillin; Z88.2 Allergy status to sulfonamides; Z88.8 Allergy status to other drugs, medicaments and biological substances; Z79.899 Other long term (current) drug therapy; X50.9XXA Other and unspecified overexertion or strenuous movements or postures, initial encounter
CPT/HCPCS: 36415; 80053; 85025; 85610; 86140; 93971-26-LT; 93971-LT; 99283; 99284

== ENCOUNTER 2024-04-23 06:42 | Day surgery (SDC) | payer OTHER ==
[2024-04-23] MEDS: HYDROmorphone 1 MG/ML Syringe IVPUSH ONE ×2 (08:02→09:40)
[2024-04-23] MEDS: Sodium Chloride 0.9% 1,000 ML IV SCH (08:02)
[2024-04-23 08:23] LABS: BASOPHILS ABSOLUTE AUTO 0.1 K/mm3 (0.0-0.2); BASOPHILS PERCENT AUTO 0.8 % (0.0-1.0); EOSINOPHILS PERCENT AUTO 12.4 % (0.0-6.0); HEMATOCRIT 42.2 % (37.0-47.0); HEMOGLOBIN 13.5 gm/dl (12.0-16.0); IMMATURE GRAN ABSOLUTE AUTO 0.03 K/mm3 (0.00-0.05); IMMATURE GRAN PERCENT AUTO 0.4 % (0.0-0.4); LYMPHOCYTES ABSOLUTE AUTO 1.9 K/mm3 (1.0-4.8); LYMPHOCYTES PERCENT AUTO 22.8 % (24.0-44.0); MEAN CORPUSCULAR HEMOGLOBIN 30.8 pg (28.0-32.0); MEAN PLATELET VOLUME 8.4 fl (9.4-12.3); MONOCYTES ABSOLUTE AUTO 0.5 K/mm3 (0.0-0.8); MONOCYTES PERCENT AUTO 6.6 % (0.0-8.0); NEUTROPHILS ABSOLUTE AUTO 4.7 K/mm3 (1.8-7.7); PLATELET COUNT,PLT 250 K/mm3 (150-400); RED BLOOD CELL COUNT 4.39 M/mm3 (4.10-5.30); WHITE BLOOD CELL COUNT,WBC 8.24 K/mm3 (3.9-11.3)
[2024-04-23 08:27] LABS: MEAN CORPUSCULAR VOLUME 96.1 fl (83.0-99.0)
[2024-04-23] MEDS: Propofol 200 MG/20 ML SDV IVPUSH ONE (08:37)
[2024-04-23 08:42] LABS: ANION GAP 11.4 (5-15); BUN/CREATININE RATIO 16.7 (14-18); CALCIUM 8.7 mg/dL (8.5-10.1); CREATININE 0.6 mg/dL (0.55-1.02); EST CRCL DRUG DOSING (CG) 122.51 mL/min; POTASSIUM,K 4.4 mEq/L (3.5-5.1)
[2024-04-23] MEDS: Ondansetron 4 MG/2 ML SDV IVPUSH ONE (09:42)
[2024-04-23] MEDS ORDERED: Ondansetron 4 MG/2 ML SDV ONE (11:06)
[2024-04-23] MEDS ORDERED: Lidocaine 1% 5 ML VIAL ONE (11:06)
[2024-04-23] MEDS ORDERED: fentaNYL 250 MCG/5 ML SDV ONE (11:06)
[2024-04-23] MEDS ORDERED: Rocuronium 50 MG/5 ML Vial ONE (11:06)
[2024-04-23] MEDS ORDERED: Midazolam 1 MG/ML 2 ML SDV ONE (11:06)
[2024-04-23] MEDS ORDERED: Propofol 200 MG/20 ML SDV ONE (11:06)
[2024-04-23] MEDS ORDERED: Lactated Ringers 1,000 ML IV ONE (11:33)
[2024-04-23] MEDS ORDERED: Dexamethasone 4 MG/ML 5 ML MDV ONE (11:54)
[2024-04-23] MEDS ORDERED: ePHEDrine 50 MG/ML SDV ONE (11:54)
[2024-04-23] MEDS ORDERED: Sugammadex Sodium 200 MG/2 ML VIAL IV ONE (12:45)
[2024-04-23] MEDS: Clindamycin Phosphate in D5W 900 MG in Premix Bag 1 BAG IV ONE (12:48)
[2024-04-23] MEDS: EPINEPHrine 1 MG/ML SDV ONE (13:09)
[2024-04-23] MEDS: Bupivacaine 0.5% 30 ML SDV ONE (13:09)
[2024-04-23] MEDS ORDERED: Ondansetron 4 MG/2 ML SDV IVPUSH PRN (14:32)
[2024-04-23] MEDS: HYDROmorphone 0.5 MG/0.5 ML Syringe IVPUSH PRN (14:34)
[2024-04-23] MEDS: fentaNYL 100 MCG/2 ML SDV IVPUSH PRN (14:50)
[2024-04-23] MEDS: diphenhydrAMINE 50 MG/ML SDV IVPUSH ONE (15:18)
[2024-04-23] MEDS: Ketorolac 30 MG/ML SDV IVPUSH ONE (16:03)
[2024-04-23] MEDS: oxyCODONE 5 MG Tab PO PRN (16:05)
== END 2024-04-23 16:44 | disposition home or self-care (01) ==
LOC: JD.ED 06:42 → JD.SDS 11:32
PROVIDERS: ATTEND Surgery
DX: K41.30 Unilateral femoral hernia, with obstruction, without gangrene, not specified as recurrent (principal); Z88.0 Allergy status to penicillin; Z88.2 Allergy status to sulfonamides; K21.9 Gastro-esophageal reflux disease without esophagitis; F41.9 Anxiety disorder, unspecified; J45.909 Unspecified asthma, uncomplicated
CPT/HCPCS: 00840; 36415; 80048; 84703; 85025; 96374; 96375; 96376; 99152; 99284-25; 99285; A9270-GY; J0171; J0665; J0736; J1100; J1171; J1200; J1885; J2250; J2405; J2704; J3010; J3490; J7030; J7120

== ENCOUNTER 2024-04-30 17:18 | Emergency (ER) | payer OTHER ==
[2024-04-30 19:03] LABS: BASOPHILS ABSOLUTE AUTO 0.1 K/mm3 (0.0-0.2); BASOPHILS PERCENT AUTO 0.6 % (0.0-1.0); EOSINOPHILS ABSOLUTE AUTO 0.7 K/mm3 (0.0-0.4); EOSINOPHILS PERCENT AUTO 6.7 % (0.0-6.0); HEMATOCRIT 38.4 % (37.0-47.0); HEMOGLOBIN 12.7 gm/dl (12.0-16.0); IMMATURE GRAN ABSOLUTE AUTO 0.04 K/mm3 (0.00-0.05); IMMATURE GRAN PERCENT AUTO 0.4 % (0.0-0.4); LYMPHOCYTES ABSOLUTE AUTO 2.5 K/mm3 (1.0-4.8); LYMPHOCYTES PERCENT AUTO 24.1 % (24.0-44.0); MEAN CORPUSCULAR HEMOGLOBIN 31.1 pg (28.0-32.0); MEAN CORPUSCULAR HGB CONC 33.1 g/dl (32.0-36.0); MEAN CORPUSCULAR VOLUME 93.9 fl (83.0-99.0); MEAN PLATELET VOLUME 7.8 fl (9.4-12.3); MONOCYTES ABSOLUTE AUTO 0.5 K/mm3 (0.0-0.8); MONOCYTES PERCENT AUTO 5.1 % (0.0-8.0); NEUTROPHILS ABSOLUTE AUTO 6.4 K/mm3 (1.8-7.7); NEUTROPHILS PERCENT AUTO 63.1 % (41.0-71.0); PLATELET COUNT,PLT 232 K/mm3 (150-400); RED BLOOD CELL COUNT 4.09 M/mm3 (4.10-5.30); WHITE BLOOD CELL COUNT,WBC 10.17 K/mm3 (3.9-11.3)
[2024-04-30 19:25] LABS: A/G RATIO 1.2 (1-2); ALBUMIN 3.9 g/dl (3.4-5.0); ANION GAP 13.4 (5-15); BILIRUBIN TOTAL 0.5 mg/dL (0.2-1.0); BUN/CREATININE RATIO 13.3 (14-18); CALCIUM 8.6 mg/dL (8.5-10.1); CREATININE 0.6 mg/dL (0.55-1.02); EST CRCL DRUG DOSING (CG) 122.51 mL/min; POTASSIUM,K 3.4 mEq/L (3.5-5.1); PROTEIN TOTAL,TP 7.3 g/dl (6.4-8.2)
[2024-04-30 20:02] LABS: APPEARANCE,URINE CLEAR (Clear); BILIRUBIN,URINE NEGATIVE (Negative); COLOR,URINE YELLOW (Yellow); GLUCOSE,URINE NEGATIVE (Negative); KETONES,URINE 1+ (Negative); LEUKOCYTE ESTERASE,URINE NEGATIVE (Negative); NITRITE,URINE NEGATIVE (Negative); OCCULT BLOOD,URINE NEGATIVE (Negative); PROTEIN,URINE NEGATIVE (Negative)
[2024-04-30] MEDS ORDERED: Naloxone 0.4 MG/ML SDV IVPUSH PRN (20:12)
[2024-04-30] MEDS: Iopamidol 612 MG/ML 100 ML Bottle IVPUSH ONE (20:22)
[2024-04-30] MEDS: Sodium Chloride 0.9% 10 ML Syringe FLUSH ONE (20:22)
[2024-04-30] MEDS: fentaNYL 100 MCG/2 ML SDV IVPUSH ONE (20:22)
== END 2024-04-30 21:11 | disposition home or self-care (01) ==
LOC: JD.ED 17:18
DX: R10.11 Right upper quadrant pain (principal); R10.12 Left upper quadrant pain; R10.13 Epigastric pain; J45.909 Unspecified asthma, uncomplicated; K21.9 Gastro-esophageal reflux disease without esophagitis; Z79.899 Other long term (current) drug therapy; Z88.2 Allergy status to sulfonamides; Z88.0 Allergy status to penicillin
CPT/HCPCS: 36415; 74177; 74177-26; 80053; 81003; 81025; 85025; 96374; 99284-25; J3010; J3490; Q9967

== ENCOUNTER 2024-05-08 17:09 | Emergency (ER) | payer OTHER ==
[2024-05-08] MEDS: Sodium Chloride 0.9% 10 ML Syringe FLUSH PRN (18:24)
[2024-05-08] MEDS: Sodium Chloride 0.9% 1,000 ML IV STA (18:24)
[2024-05-08] MEDS: Ondansetron 4 MG/2 ML SDV IVPUSH ONE (18:24)
[2024-05-08] MEDS: HYDROmorphone 0.5 MG/0.5 ML Syringe IVPUSH ONE (18:24)
[2024-05-08 18:28] LABS: BASOPHILS ABSOLUTE AUTO 0.1 K/mm3 (0.0-0.2); BASOPHILS PERCENT AUTO 0.8 % (0.0-1.0); EOSINOPHILS ABSOLUTE AUTO 1.1 K/mm3 (0.0-0.4); EOSINOPHILS PERCENT AUTO 10.4 % (0.0-6.0); HEMATOCRIT 36.1 % (37.0-47.0); HEMOGLOBIN 11.9 gm/dl (12.0-16.0); IMMATURE GRAN ABSOLUTE AUTO 0.04 K/mm3 (0.00-0.05); IMMATURE GRAN PERCENT AUTO 0.4 % (0.0-0.4); LYMPHOCYTES ABSOLUTE AUTO 2.9 K/mm3 (1.0-4.8); LYMPHOCYTES PERCENT AUTO 28.8 % (24.0-44.0); MEAN CORPUSCULAR HEMOGLOBIN 30.4 pg (28.0-32.0); MEAN CORPUSCULAR VOLUME 92.3 fl (83.0-99.0); MEAN PLATELET VOLUME 7.9 fl (9.4-12.3); MONOCYTES ABSOLUTE AUTO 0.6 K/mm3 (0.0-0.8); MONOCYTES PERCENT AUTO 5.4 % (0.0-8.0); NEUTROPHILS ABSOLUTE AUTO 5.5 K/mm3 (1.8-7.7); NEUTROPHILS PERCENT AUTO 54.2 % (41.0-71.0); PLATELET COUNT,PLT 297 K/mm3 (150-400); RED BLOOD CELL COUNT 3.91 M/mm3 (4.10-5.30); WHITE BLOOD CELL COUNT,WBC 10.13 K/mm3 (3.9-11.3)
[2024-05-08] MEDS: Iopamidol 612 MG/ML 100 ML Bottle IVPUSH ONE (18:32)
[2024-05-08 18:56] LABS: A/G RATIO 1.2 (1-2); ALBUMIN 3.6 g/dl (3.4-5.0); ANION GAP 13.6 (5-15); BILIRUBIN TOTAL 0.3 mg/dL (0.2-1.0); CALCIUM 8.2 mg/dL (8.5-10.1); CREATININE 0.5 mg/dL (0.55-1.02); EST CRCL DRUG DOSING (CG) 147.01 mL/min; POTASSIUM,K 3.6 mEq/L (3.5-5.1); PROTEIN TOTAL,TP 6.7 g/dl (6.4-8.2)
== END 2024-05-08 19:50 | disposition home or self-care (01) ==
LOC: JD.ED 17:09
DX: R10.11 Right upper quadrant pain (principal); R11.2 Nausea with vomiting, unspecified; J45.909 Unspecified asthma, uncomplicated; K21.9 Gastro-esophageal reflux disease without esophagitis; Z79.899 Other long term (current) drug therapy; Z88.0 Allergy status to penicillin; Z88.2 Allergy status to sulfonamides
CPT/HCPCS: 36415; 74177; 80053; 83690; 84703; 85025; 96361; 96374; 96375; 99284; J1171; J2405; J3490; J7030; Q9967

== ENCOUNTER 2024-11-01 10:51 | Emergency (ER) | payer OTHER ==
[2024-11-01] MEDS: Ketorolac 30 MG/ML SDV IM ONE (12:56)
[2024-11-01] MEDS: predniSONE 20 MG Tab PO ONE (14:08)
== END 2024-11-01 14:10 | disposition home or self-care (01) ==
LOC: JD.ED 10:51
DX: M25.562 Pain in left knee (principal); M79.605 Pain in left leg; D89.89 Other specified disorders involving the immune mechanism, not elsewhere classified; J45.909 Unspecified asthma, uncomplicated; K21.9 Gastro-esophageal reflux disease without esophagitis; Z88.0 Allergy status to penicillin; Z88.2 Allergy status to sulfonamides; Z88.8 Allergy status to other drugs, medicaments and biological substances; Z79.899 Other long term (current) drug therapy; Z90.49 Acquired absence of other specified parts of digestive tract
CPT/HCPCS: 73562; 93971; 96372; 99284; J1885; J7512

== ENCOUNTER 2025-06-25 12:15 | Emergency (ER) | payer OTHER ==
[2025-06-25] MEDS ORDERED: Sodium Chloride 0.9% 10 ML Syringe FLUSH PRN ×2 (13:16→14:32)
[2025-06-25 13:48] LABS: BASOPHILS ABSOLUTE AUTO 0.1 K/mm3 (0.0-0.2); BASOPHILS PERCENT AUTO 0.5 % (0.0-1.0); EOSINOPHILS ABSOLUTE AUTO 0.1 K/mm3 (0.0-0.4); EOSINOPHILS PERCENT AUTO 0.5 % (0.0-6.0); IMMATURE GRAN ABSOLUTE AUTO 0.03 K/mm3 (0.00-0.05); IMMATURE GRAN PERCENT AUTO 0.3 % (0.0-0.4); LYMPHOCYTES ABSOLUTE AUTO 2.0 K/mm3 (1.0-4.8); LYMPHOCYTES PERCENT AUTO 18.1 % (24.0-44.0); MEAN PLATELET VOLUME 8.6 fl (9.4-12.3); MONOCYTES ABSOLUTE AUTO 0.5 K/mm3 (0.0-0.8); MONOCYTES PERCENT AUTO 4.4 % (0.0-8.0); NEUTROPHILS ABSOLUTE AUTO 8.4 K/mm3 (1.8-7.7); NEUTROPHILS PERCENT AUTO 76.2 % (41.0-71.0); NRBC ABSOLUTE 0.00 (0.00-0.02); NRBC PERCENT 0.0 % (0.0-0.2); PLATELET COUNT,PLT 244 K/mm3 (150-400); RED BLOOD CELL COUNT 4.52 M/mm3 (4.10-5.30); WHITE BLOOD CELL COUNT,WBC 11.05 K/mm3 (3.9-11.3)
[2025-06-25 13:58] LABS: A/G RATIO 1.0 (1-2); ALANINE AMINOTRANSFERASE,ALT 19.0 U/L (14-59); ASPARTATE AMNIOTRANSFERASE,AST 15.0 U/L (15-37); BILIRUBIN TOTAL 0.3 mg/dL (0.2-1.0); BLOOD UREA NITROGEN,BUN 7.0 mg/dL (7-18); CARBON DIOXIDE,CO2 26.0 mEq/L (21-32); CHLORIDE,CL 106.0 mEq/L (98-107); CREATININE 0.5 mg/dL (0.55-1.02); EST CRCL DRUG DOSING (CG) 145.61 mL/min; ESTIMATED GFR 125.0 mL/min (>60); GLUCOSE RANDOM 97.0 mg/dL (70-99); POTASSIUM,K 4.2 mEq/L (3.5-5.1); PROTEIN TOTAL,TP 7.1 g/dl (6.4-8.2); SODIUM,NA 141.0 mEq/L (136-145)
[2025-06-25] MEDS: Ondansetron 4 MG/2 ML SDV IVPUSH ONE (14:02)
[2025-06-25] MEDS ORDERED: Iopamidol 612 MG/ML 100 ML Bottle IVPUSH ONE (14:32)
[2025-06-25 16:40] LABS: APPEARANCE,URINE CLEAR (Clear); GLUCOSE,URINE NEGATIVE (Negative); OCCULT BLOOD,URINE NEGATIVE (Negative)
[2025-06-25] MEDS: Ketorolac 30 MG/ML SDV IVPUSH ONE (17:04)
== END 2025-06-25 18:05 | disposition home or self-care (01) ==
LOC: JD.ED 12:15
DX: R10.31 Right lower quadrant pain (principal); J45.909 Unspecified asthma, uncomplicated; Z88.0 Allergy status to penicillin; Z88.2 Allergy status to sulfonamides; Z88.8 Allergy status to other drugs, medicaments and biological substances; Z79.899 Other long term (current) drug therapy; Z90.49 Acquired absence of other specified parts of digestive tract
CPT/HCPCS: 36415; 74177; 76830; 80053; 81003; 84703; 85025; 86140; 96374; 96375; 99284; J1171; J1885; J2405; J7030